=== PATIENT | female | born 1950 | race Caucasian/White ===

== ENCOUNTER 2017-04-08 20:39 | Emergency (ER) | payer MEDICARE, BC ==
[2017-04-08] MEDS ORDERED: Tetan/Diph/Pertus SYR(Tdap)* 0.5 ML SYR(BOOSTRIX) use SYR IM ONE (22:22)
--- NOTE | 2017-04-08 22:25 | ED ---
Laceration/Wound HPI - HPI Summary HPI Summary: 66F presents with laceration to right palm from a tuna can. She was opening the can when her hand slipped and she sliced it on the side. She denies any numbness or tingling. She has full ROM of her fingers. She does not know when last tetanus was. bleeding is controlled. - History of Current Complaint Stated Complaint: RT HAND LAC Time Seen by Provider: 04/08/17 21:04 Pain Intensity: 6 - Allergy/Home Medications Allergies/Adverse Reactions: Allergies Allergy/AdvReac Type Severity Reaction Status Date / Time No Known Allergies Allergy Verified 03/25/13 11:48 PMH/Surg Hx/FS Hx/Imm Hx Endocrine/Hematology History: Denies: Hx Anticoagulant Therapy Cardiovascular History: Denies: Hx Pacemaker/ICD Musculoskeletal History: Denies: Hx Osteoporosis Sensory History: Denies: Hx Hearing Aid Psychiatric History: Denies: Hx Panic Disorder - Cancer History Cancer Type, Location and Year: SKIN-NOSE Hx Chemotherapy: No Hx Radiation Therapy: No - Surgical History Surgery Procedure, Year, and Place: TONSILECTOMY- 1960. Rt ANKLE-2004 ( 2008- REMOVED HARDWARE). 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 [facility]FF - R-2007 & L-2008 Infectious Disease History: Denies: Traveled Outside the [place] in Last 30 Days - Family History Known Family History: Positive: Cardiac Disease - Social History Alcohol Use: Occasionally Substance Use Type: Reports: None Smoking Status (MU): Never Smoked Tobacco Review of Systems Negative: Fever Negative: Chest Pain Negative: Shortness Of Breath Positive: Other - laceration right palm All Other Systems Reviewed And Are Negative: Yes Physical Exam Triage Information Reviewed: Yes Vital Signs On Initial Exam: Initial Vitals Temp Pulse Resp BP Pulse Ox 97.3 F 70 18 112/69 99 04/08/17 20:42 04/08/17 20:42 04/08/17 20:42 04/08/17 20:42 04/08/17 20:42 Vital Signs Reviewed: Yes Appearance: Positive: Well-Appearing Skin: Positive: Warm, Dry, Other - 3cm laceration center of right palm Head/Face: Positive: Normal Head/Face Inspection Eyes: Positive: Normal, Conjunctiva Clear Respiratory/Lung Sounds: Positive: Clear to Auscultation, Breath Sounds Present Cardiovascular: Positive: Normal, RRR Musculoskeletal: Positive: Strength/ROM Intact - right hand, Other - good pulses , capillary refill<2secs, Procedures - Laceration/Wound Repair 1 Location: Other - right hand Description: Linear Anesthesia: Local, 1.0% Length, Depth and Shape: 3cm Betadine Prep?: Yes Irrigated w/ Saline (ccs): 300 Laceration/Wound Explored: clean Suture Type: Prolene - 4-0 Number of Sutures: 3 Diagnostics - Vital Signs Vital Signs Temp Pulse Resp BP Pulse Ox 04/08/17 20:42 97.3 F 70 18 112/69 99 - Laboratory Lab Statement: Any lab studies that have been ordered have been reviewed, and results considered in the medical decision making process. Laceration Repair Course/Dx - Course Course Of Treatment: 66F presents with laceration to right palm from a tuna can. She was opening the can when her hand slipped and she sliced it on the side. She denies any numbness or tingling. She has full ROM of her fingers. She does not know when last tetanus was. bleeding is controlled. placed. 3 sutures. patient understands and agrees with plan. - Differential Dx Differental Diagnoses: Abrasion, Avulsion, Laceration - Clinical Impression Provider Diagnoses: Laceration of right hand Discharge - Discharge Plan Condition: Good Disposition: HOME Patient Education Materials: Care For Your Stitches (ED) Referrals: Vega De La Cruz MD [Primary Care Provider] - Additional Instructions: Take Tylenol or ibuprofen for pain Keep area clean and dry Return to ED or primary in 10-14 days to have sutures removed Return to ED if develop signs of infection such as fever, spreading redness, or pus.
[2017-04-08 22:29] VITALS: BP 106/68
== END 2017-04-08 22:31 | disposition home or self-care (01) ==
LOC: ED 20:39
DX: S61.411A Laceration without foreign body of right hand, initial encounter (principal); W26.8XXA Contact with other sharp object(s), not elsewhere classified, initial encounter; Y93.G1 Activity, food preparation and clean up; Y92.9 Unspecified place or not applicable; Z23 Encounter for immunization; Z85.828 Personal history of other malignant neoplasm of skin
CPT/HCPCS: 12002; 90471; 90715; 99282